=== PATIENT | male | born 2000 | race Caucasian/White ===

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

== ENCOUNTER 2021-04-18 21:14 | Emergency (ER) | payer OTHER ==
[2021-04-18 22:26] LABS: HEMOGLOBIN 15.4 gm/dl (14.0-17.5); RED BLOOD COUNT 5.34 M/UL (4.20-5.50); WHITE BLOOD COUNT 9.2 K/UL (4.5-11.0)
[2021-04-18] MEDS ORDERED: CYCLOBENZAPRINE10 MG PO (23:05)
[2021-04-18] MEDS ORDERED: IBU800 MG PO (23:06)
== END 2021-04-18 23:25 | disposition home or self-care (01) ==
LOC: ER1 21:14
PROVIDERS: Emergency Medicine
DX: M54.2 Cervicalgia (principal); M54.6 Pain in thoracic spine; Z23 Encounter for immunization
CPT/HCPCS: 85025; 90715; 96374; 99283; J1885

== ENCOUNTER 2021-09-08 00:57 | Emergency (ER) | payer OTHER ==
[~2021-09-08 00:57] MED LIST: CYCLOBENZAPRINE10 MG PO; IBU800 MG PO
[2021-09-08 02:40] LABS: HEMOGLOBIN 16.3 gm/dl (14.0-17.5); RED BLOOD COUNT 5.74 M/UL (4.20-5.50); WHITE BLOOD COUNT 14.2 K/UL (4.5-11.0)
[2021-09-08 03:00] LABS: BUN/CREATININE RATIO 23 (0-10)
[2021-09-08] MEDS ORDERED: BENTYL 20MG TAB20 MG PO (03:51)
[2021-09-08] MEDS ORDERED: ZOFRAN 4 MG TAB4 MG PO (03:51)
== END 2021-09-08 04:00 | disposition home or self-care (01) ==
LOC: ER1 00:57
PROVIDERS: Physician Assistant Medical
DX: E86.0 Dehydration (principal); R10.84 Generalized abdominal pain; R11.2 Nausea with vomiting, unspecified; R19.7 Diarrhea, unspecified; F17.210 Nicotine dependence, cigarettes, uncomplicated
CPT/HCPCS: 80053; 80307; 81001; 83690; 85025; 96374; 99284; J2405